=== PATIENT | male | born 1970 | race Caucasian/White ===

== ENCOUNTER 2018-04-26 21:59 | Emergency (ER) | payer MEDICAID ==
[~2018-04-26] VITALS: Ht 172.7 cm; Wt 85.4 kg
[~2018-04-26 21:59] MED LIST: FLA500 PO; LAC PO; LEVAQUIN750 MG PO
[2018-04-26 22:10] VITALS: Ht 172.7 cm; Wt 85.4 kg
[2018-04-26 23:46] LABS: PLATELET COUNT 211 x10^3mcL (130-400)
[2018-04-26 23:51] LABS: RED CELL DISTRIBUTION WIDTH 20.7 % (11.5-14.5)
[2018-04-26 23:53] LABS: CALCIUM 9.2 mg/dL (8.5-10.1); CARBON DIOXIDE 27.1 mmol/L (21-32); CHLORIDE SERUM 101 mmol/L (98-107); CREATININE SERUM 0.9 mg/dL (0.7-1.3); GFR1 > 60 mL/min; GLUCOSE SERUM 107 mg/dL (74-106); POTASSIUM SERUM 3.5 mmol/L (3.5-5.1); SODIUM SERUM 137 mmol/L (136-145)
[2018-04-26 23:58] LABS: ALBUMIN 3.8 g/dL (3.4-5.0); ALKALINE PHOSPHATASE 78 U/L (46-116); ALT/SGPT 24 U/L (16-63); AST/SGOT 18 U/L (15-37); BILIRUBIN TOTAL 0.4 mg/dL (0.20-1.00); LIPASE 85 IU/L (73-393); TOTAL PROTEIN, SERUM 8.7 g/dL (6.4-8.2)
[2018-04-27 00:10] LABS: rbc morphology (normal/abnorm) ABNORMAL (NORMAL)
[2018-04-27 00:11] LABS: PLATELET MORPHOLOGY PLATELETS NORMAL
[2018-04-27 00:12] LABS: SEGMENTED NEUTROPHILS 75 % (37-75)
[2018-04-27 05:20] VITALS: BP 137/93
== END 2018-04-27 05:20 | disposition home or self-care (01) ==
LOC: ED 21:59
PROVIDERS: Emergency Medicine
DX: K59.00 Constipation, unspecified (principal); K40.90 Unilateral inguinal hernia, without obstruction or gangrene, not specified as recurrent; G89.29 Other chronic pain; M54.9 Dorsalgia, unspecified; Z88.0 Allergy status to penicillin; Z88.1 Allergy status to other antibiotic agents; Z86.2 Personal history of diseases of the blood and blood-forming organs and certain disorders involving the immune mechanism
CPT/HCPCS: 36415